=== PATIENT | female | born 2000 | race Caucasian/White ===

== ENCOUNTER → 2019-11-04 | Outpatient (CLI) | payer OTHER ==
[~2019-11-04] MED LIST: CODACEE120 PO
[2019-11-08 01:08] LABS: CHLAMYDIA TRACHOMATIS, NAA Negative (Negative); NEISSERIA GONORRHOEAE, NAA Negative (Negative)
== END ==
LOC: LAB 14:23 → LAB SHORT 14:23
PROVIDERS: Nurse Practitioner Family
DX: Z11.3 Encounter for screening for infections with a predominantly sexual mode of transmission (principal)
CPT/HCPCS: 87491; 87591

== ENCOUNTER 2024-09-05 00:02 | Emergency (ER) | payer BC, OTHER ==
[~2024-09-05] VITALS: Ht 165.1 cm; Wt 122.5 kg
[2024-09-05 00:36] VITALS: BP 82/60
[2024-09-05] MEDS ORDERED: Robaxin750 MG PO (03:33)
[2024-09-05] MEDS ORDERED: LIDO700A20 TOP (03:33)
[2024-09-05] MEDS ORDERED: Methocarbamol 500 MG Tab PO ONE (03:35)
[2024-09-05] MEDS ORDERED: Ketorolac Tromethamine 15mg Vial IV ONE (03:35)
== END 2024-09-05 03:49 | disposition home or self-care (01) ==
LOC: ER 00:02
DX: S39.012A Strain of muscle, fascia and tendon of lower back, initial encounter (principal); X50.0XXA Overexertion from strenuous movement or load, initial encounter
CPT/HCPCS: 96374; 99283-25; A9270; J1885

== ENCOUNTER 2025-05-14 21:39 | Emergency (ER) | payer BC ==
[~2025-05-14] VITALS: Ht 165.1 cm; Wt 120.7 kg
[~2025-05-14 21:39] MED LIST changes: +LIDO700A20 TOP; +Robaxin750 MG PO
[2025-05-14 22:27] VITALS: BP 174/108
[2025-05-14] MEDS ORDERED: CEPH500 PO (22:43)
== END 2025-05-14 22:55 | disposition home or self-care (01) ==
LOC: ER 21:39
DX: A46 Erysipelas (principal)
CPT/HCPCS: 99282; A9270